=== PATIENT | male | born 1990 | race Native Hawaiian/Other Pacific Islander ===

== ENCOUNTER 2023-07-24 06:44 | Emergency (ER) | payer OTHER ==
[~2023-07-24] VITALS: Ht 165.1 cm; Wt 111.1 kg
[2023-07-24] MEDS ORDERED: HYDR25TA60 PO (06:55)
[2023-07-24 07:44] LABS: PLATELET COUNT 169 K/uL (142-355)
[2023-07-24 07:51] LABS: POTASSIUM 4.4 mmol/L (3.6-5.2)
== END 2023-07-24 09:14 | disposition home or self-care (01) ==
LOC: ED 06:44
PROVIDERS: Family Medicine
DX: J01.90 Acute sinusitis, unspecified (principal); R51.9 Headache, unspecified; T78.40XA Allergy, unspecified, initial encounter; I10 Essential (primary) hypertension; F17.210 Nicotine dependence, cigarettes, uncomplicated
CPT/HCPCS: 80053; 81002; 85027; 86140; 87502; 87635; 87651; 96372; 99283; J1200; J2930; U0003